=== PATIENT | female | born 1940 | race Caucasian/White ===

== ENCOUNTER 2021-03-18 09:16 | Inpatient (IN) | payer MEDICARE, SELFPAY ==
[2021-03-18 10:00] LABS: Bilirubin Negative (Negative); Blood, Urine Moderate (Negative); Clarity Clear (Clear); Glucose, Urine (Dipstick) Negative (Negative); Ketone, Urine Negative (Negative); Leukocyte Negative (Negative); Nitrite Negative (Negative); Protein, Urine (Dipstick) 30 mg/dL (Neg-Trace); Specific Gravity, Urine 1.025 (1.005-1.030); Urobilinogen 0.2 mg/dL (Less than 2)
[2021-03-18 10:09] LABS: Bacteria/HPF Rare-Few HPF (None Seen); Squamous Epithelial 0-3 HPF (0-3); WBC/HPF 0-3 HPF (0-3)
[2021-03-18 10:25] LABS: #Monocytes 0.6 thou/uL (0.11-0.59); #Neutrophils 8.8 thou/uL (1.40-6.50); %Basophils 0.3 % (0.0-1.0); %Eosinophils 0.1 % (0.0-10.0); %Lymphocytes 9.2 % (21.0-51.0); %Monocytes 6.1 % (0.0-10.0); %Neutrophils 84.3 % (42.0-75.0); Hemoglobin 11.7 g/dL (12.0-16.0); Mean Corpuscular HGB CONC 31.5 g/dL (32.0-36.0); Mean Corpuscular Hemoglobin 28.1 pg (27.0-31.0); Mean Corpuscular Volume 89.1 fL (78.0-98.0); Mean Platelet Volume 7.7 fL (7.4-10.4); Platelet Count 257 thou/uL (130-400); RBC Distribution Width 12.1 % (11.5-14.5); Red Blood Cell (RBC) Count 4.16 mill/uL (4.20-5.40); White Blood Cell (WBC) Count 10.5 thou/uL (4.8-10.8)
[2021-03-18] MEDS ORDERED: Acetaminophen 500 MG TAB ONE (10:27)
[2021-03-18] MEDS ORDERED: Sodium Chloride 0.9% 1,000 ML ONE (10:27)
[2021-03-18] MEDS ORDERED: Sodium Chloride 0.9% 0 ML ONE (10:27)
[2021-03-18] MEDS ORDERED: Sodium Chloride 0.9% 500 ML ONE (10:29)
[2021-03-18 10:33] LABS: ALT (SGPT) 12 U/L (8-55); AST (SGOT) 17 U/L (5-34); Albumin 3.3 g/dL (3.4-4.8); Alkaline Phosphatase 59 U/L (40-110); Anion Gap 13 mmol/L (10-20); BUN (Urea Nitrogen) 11 mg/dL (9.8-20.1); Bilirubin, Total 1.7 mg/dL (0.2-1.2); Calc. Creatinine Clearance 0 mL/min (70-130); Calcium 8.6 mg/dL (7.8-10.44); Carbon Dioxide 23 mmol/L (23-31); Chloride 100 mmol/L (98-107); Globulin 3.1 g/dL (2.4-3.5); Glucose 127 mg/dL (83-110); Potassium 4.1 mmol/L (3.5-5.1); Protein, Total 6.4 g/dL (5.8-8.1); Sodium 132 mmol/L (136-145)
[2021-03-18] MEDS ORDERED: cefTRIAXone\\ROCEPHIN 2 GM VIAL ONE (11:07)
[2021-03-18] MEDS ORDERED: Sodium Chloride 0.9% 100 ML ONE (11:08)
[2021-03-18 11:46] LABS: SARS-CoV-2 NAA Rapid Test Not Detected (NotDetected)
[2021-03-18 14:58] VITALS: BMI 27.9
[2021-03-18] MEDS ORDERED: Dextrose 5% in Water 1,000 ML IV PRN (18:45)
[2021-03-18] MEDS ORDERED: Dextrose 50% Abboject 50 ML SYRINGE IVP PRN (18:45)
[2021-03-18] MEDS ORDERED: HumaLOG 300 UNITS/3 ML VIAL SC PRN (18:45)
[2021-03-18] MEDS ORDERED: Dextrose 50% Abboject 50 ML SYRINGE SLOW IVP PRN (20:04)
[2021-03-18] MEDS ORDERED: Acetaminophen 650 MG Suppository PR PRN (20:09)
[2021-03-18] MEDS ORDERED: Senokot S 8.6-50 MG TAB PO PRN (20:09)
[2021-03-18] MEDS ORDERED: Eucerin (Mineral Oil/Petrolatum,White) 30 gm Jar TOP PRN (20:09)
[2021-03-18] MEDS ORDERED: Bisacodyl 5 MG TAB PO PRN (20:09)
[2021-03-18] MEDS ORDERED: Benzonatate 100 MG CAP PO PRN (20:09)
[2021-03-18] MEDS ORDERED: Artificial Tear Sol 15 ML BOT EA EYE PRN (20:09)
[2021-03-18] MEDS ORDERED: Loperamide HCl 2 MG CAP PO PRN ×2 (20:09)
[2021-03-18] MEDS: Famotidine 20 MG TAB PO SCH (22:17)
[2021-03-18] MEDS: Mirtazapine 15 MG TAB PO SCH (22:17)
[2021-03-18] MEDS: Acetaminophen 325 MG TAB PO PRN (22:17)
[2021-03-19 06:59] LABS: #Basophils 0.1 thou/uL (0.0-0.2); #Eosinphils 0.1 thou/uL (0.0-0.7); #Lymphocytes 1.4 thou/uL (1.20-3.40); #Monocytes 0.6 thou/uL (0.11-0.59); #Neutrophils 6.2 thou/uL (1.40-6.50); %Basophils 0.6 % (0.0-1.0); %Eosinophils 1.3 % (0.0-10.0); %Lymphocytes 16.9 % (21.0-51.0); %Monocytes 7.2 % (0.0-10.0); Hemoglobin 11.3 g/dL (12.0-16.0); Mean Corpuscular HGB CONC 31.6 g/dL (32.0-36.0); Mean Corpuscular Hemoglobin 28.2 pg (27.0-31.0); Mean Corpuscular Volume 89.1 fL (78.0-98.0); Mean Platelet Volume 7.9 fL (7.4-10.4); Platelet Count 212 thou/uL (130-400); White Blood Cell (WBC) Count 8.4 thou/uL (4.8-10.8)
[2021-03-19 07:11] LABS: Anion Gap 10 mmol/L (10-20); BUN (Urea Nitrogen) 8 mg/dL (9.8-20.1); Calc. Creatinine Clearance 79 mL/min (70-130); Calcium 8.8 mg/dL (7.8-10.44); Carbon Dioxide 23 mmol/L (23-31); Chloride 107 mmol/L (98-107); Glucose 94 mg/dL (83-110); Potassium 3.4 mmol/L (3.5-5.1); Sodium 137 mmol/L (136-145)
[2021-03-19] MEDS: metFORMIN 500 MG TAB PO SCH ×2 (08:38→17:01)
[2021-03-19] MEDS: Mirtazapine 15 MG TAB PO SCH ×2 (08:39→21:23)
[2021-03-19] MEDS: Famotidine 20 MG TAB PO SCH ×2 (08:39→21:23)
[2021-03-19] MEDS: Trospium 20 MG TAB PO SCH ×2 (08:40→21:23)
[2021-03-19] MEDS ORDERED: Donepezil HCl 5 MG TAB PO SCH ×2 (09:00→21:00)
[2021-03-19] MEDS ORDERED: Aspirin 81 mg Enteric Coated Tablet PO SCH (09:00)
[2021-03-19] MEDS ORDERED: cefTRIAXone\\ROCEPHIN 2 GM in Sodium Chloride 0.9% 100 ML IVPB SCH (11:00)
[2021-03-19] MEDS ORDERED: Cyclobenzaprine 10 MG TAB PO PRN (14:01)
[2021-03-19] MEDS: Acetaminophen 325 MG TAB PO PRN (14:51)
[2021-03-19 16:44] LABS: SARS-CoV-2 PCR by NAA Not Detected (NotDetected)
[2021-03-19 20:09] VITALS: BP 93/55; TEMP 97.5
[2021-03-19] MEDS ORDERED: Sodium Chloride 0.9% 0 ML ONE (20:32)
== END 2021-03-19 21:55 | disposition home or self-care (01) | DRG 195 ==
LOC: NAV ERS 09:16 → NAV ACUTE 14:41
PROVIDERS: ADMIT Family Medicine; ATTEND Family Medicine
DX: J18.9 Pneumonia, unspecified organism (principal); K21.9 Gastro-esophageal reflux disease without esophagitis; E11.9 Type 2 diabetes mellitus without complications; E03.9 Hypothyroidism, unspecified; M25.551 Pain in right hip; G30.9 Alzheimer's disease, unspecified; F02.80 Dementia in other diseases classified elsewhere, unspecified severity, without behavioral disturbance, psychotic disturbance, mood disturbance, and anxiety; Z96.652 Presence of left artificial knee joint; F32.9 Major depressive disorder, single episode, unspecified; Z20.822 Contact with and (suspected) exposure to COVID-19; Z79.82 Long term (current) use of aspirin; Z79.84 Long term (current) use of oral hypoglycemic drugs; Z90.710 Acquired absence of both cervix and uterus
CPT/HCPCS: 36416; 51701; 71045; 80048; 80053; 81003; 81015; 83605; 84484; 85025; 87040; 96365; J0696; J3490; J7030; J7050; U0002; U0003; U0005